=== PATIENT | male | born 1995 | race Caucasian/White ===

== ENCOUNTER 2021-09-23 10:29 | Outpatient (CLI) | payer OTHER, SELFPAY ==
--- NOTE | ~2021-09-23 | US_ITS ---
EXAMINATION: US scrotum doppler DATE: 09/23/2021 11:04 INDICATION: Right testicular pain. TECHNIQUE: Grayscale and Doppler ultrasound images of the testes were obtained. COMPARISON: None. FINDINGS: The right testis measures 5.1 x 3.0 x 2.6 cm. The left testis measures 4.9 x 3.1 x 2.3 cm. There is normal vascular flow to both testes. The right epididymis is normal with normal vascular justina w. The left epididymis is normal with normal vascular flow. There is no varicocele or hydrocele. IMPRESSION: 1. Normal testes. Reviewed, dictated and finalized at location A. 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 Normal testes.
== END 2021-09-23 10:30 | disposition home or self-care (01) ==
LOC: ANHIMG 10:33
PROVIDERS: Visit Provider Nurse Practitioner Family
DX: N50.811 Right testicular pain (principal)
CPT/HCPCS: 76870; 93976

== ENCOUNTER 2022-06-30 12:23 | Emergency (ER) | payer OTHER, SELFPAY ==
--- NOTE | ~2022-06-30 | US_ITS ---
EXAMINATION: US scrotum doppler DATE: 06/30/2022 13:46 INDICATION: Right testicular pain. TECHNIQUE: Grayscale and Doppler ultrasound images of the testes were obtained. COMPARISON: Ultrasound 09/23/2021, CT abdomen and pelvis FINDINGS: The right testis measures . The left testis measures . There is normal vascular flow to bot h testes. The right epididymis is normal with normal vascular flow. The left epididymis is normal wit h normal vascular flow. There is no varicocele or hydrocele. IMPRESSION: 1. Normal testes. Reviewed, dictated and finalized at location A. [employer] W[employer] CHIEF IMPRESSION: 1. Normal testes.
[2022-06-30 12:37] VITALS: BP 131/76; PULSE 77; RESP 14; TEMP 36.7; O2SAT 99
--- NOTE | 2022-06-30 13:18 | PC.NURSE ---
Patient in ultrasound
--- NOTE | 2022-06-30 13:19 | ED.MALEGU ---
HPI - Male Genitourinary General Chief complaint: Urogenital-Male Stated complaint: right testicle pain, 5 days Time Seen by Provider: 06/30/22 12:38 History of Present Illness HPI Narrative: Patient is a 27-year-old male who presents ER with right testicular pain. Ongoing for 5 days. No trauma. Feels like it slightly enlarged. No redness of the scrotum. Reports last unprotected sex was 1 to 2 weeks ago. No urethral discharge. He is concerned he may have testicular torsion. Cannot describe any alleviating factors. Related Data Allergies Allergy/AdvReac Type Severity Reaction Status Date / Time No Known Allergies Allergy Verified 06/30/22 12:24 Review of Systems Constitutional: Constitutional: Denies chills and Denies fever(s) Gastrointestinal: Gastrointestinal: Denies abdominal pain and Denies nausea Genitourinary: Genitourinary: Denies genital lesions, Denies dysuria, Denies penile discharge, Reports testicular pain and Denies urinary frequency PMF Past Medical History Medical History (Updated 06/30/22 @ 14:51 by Cornell Guillory MD) Anxiety Depression Social History Social History (Updated 06/02/19 @ 20:55 by Kiki Davalos, COST RECORDER) Smoking packs per day: 1 Smoking cigarettes per day: 20.0 Smoking status: Current every day smoker Alcohol intake: current Alcohol use details: social Substance use: current Substance use type: marijuana Gender identity (if verbalized by the patient): Male Exam Narrative: GENERAL: Well-appearing, well-nourished, and in no acute distress. HEAD: Normocephalic, atraumatic. : Normal-appearing external genitalia without lesions of the penile shaft or glans. No urethral discharge. Right testicle slightly enlarged compared to left with irregularity over the epididymis. EXTREMITIES: Normal range of motion. No edema. SKIN: Warm, dry, no rash. NEURO: Alert and oriented x3. PSYCH: Normal mood and affect. Course Course Emergency Course: Patient informed of results. Will treat for STI exposure. Discharge. Vital Signs Vital signs: Vital Signs Temperature 98.1 F 06/30/22 12:37 Pulse Rate 77 06/30/22 12:37 Respiratory Rate 14 06/30/22 12:37 Blood Pressure 131/76 06/30/22 12:37 Pulse Oximetry 99 06/30/22 12:37 Oxygen Delivery Room Air 06/30/22 12:37 Temperature 98.1 F 06/30/22 12:37 Pulse Rate 77 06/30/22 12:37 Respiratory Rate 14 06/30/22 12:37 Blood Pressure 131/76 06/30/22 12:37 Pulse Oximetry 99 06/30/22 12:37 Oxygen Delivery Room Air 06/30/22 12:37 MDM - Male Genitourinary Lab Data Labs: Lab Results 06/30/22 06/30/22 Range/Units 13:32 13:32 Urine Color Yellow (Yellow) Urine Appearance Clear (Clear) Urine pH 6.0 (5.0-9.0) Ur Specific [place] >= 1.030 (1.001-1.035) Urine Protein Negative (Negative) mg/dL Urine Glucose (UA) Negative (Negative) mg/dL Urine Ketones Trace (Negative) mg/dL Ur Blood (Man) Negative (Negative) Urine Nitrate Negative (Negative) Urine Bilirubin 1+ H (Negative) Urine Urobilinogen 1.0 (<2.0) mg/dL Leukocyte Esterase Rfl Negative (Negative) TIFFANI/UL Urine WBC 0-3 /hpf Urine Bacteria Trace /hpf Hyaline Casts 1-2 (None) /lpf Urine Mucus Rare /lpf C.trachomatis RNA (TMA) Pending N.gonorrhoeae RNA (TMA) Pending Imaging Data Radiologist's impression: ITS Impressions Scrotum Ultrasound 06/30/22 13:48 IMPRESSION: 1. Normal testes. Discharge Plan Discharge Clinical Impression: Pain in testicle, Exposure to STD Patient Disposition: Home, Self-Care Condition: Stable Instructions: Antibiotic Form, Safe Sex Practices (ED), Testicle Pain (ED) Additional Instructions: Return the ER if you have worsening pain in your testicle, you have burning urination, or you have additional concerns. Prescriptions: New doxycycline monohydrate 100 mg capsule
[2022-06-30] MEDS: IBUPROFEN 600 MG TABLET PO (13:30)
[2022-06-30 13:43] LABS: Appearance Urine Clear (Clear); Bilirubin Urine 1+ (Negative); Blood Urine Negative (Negative); Color Urine Yellow (Yellow); Glucose Urine UA Negative (Negative); Ketones Urine Trace mg/dL (Negative); Leukocyte Esterase Ur Negative LEU/UL (Negative); Nitrate Urine Negative (Negative); Protein Urine Negative (Negative); Specific Grav Ur >= 1.030 (1.001-1.035)
[2022-06-30 13:48] LABS: Add Urine Microscopic? YES; Bacteria Urine Trace /hpf; Mucus Urine Rare /lpf; WBC Urine 0-3 /hpf
[2022-06-30 14:00] VITALS: TEMP 36.7
[2022-06-30] MEDS: cefTRIAXone 1 GM VIAL 0.5 GM IM (15:40)
[2022-06-30] MEDS: LIDOCAINE HCL 1% LOCAL INJ 20 ML VIAL (15:41)
== END 2022-06-30 15:50 | disposition home or self-care (01) ==
PROVIDERS: Emergency Provider Emergency Medicine; PCP Nurse Practitioner Family
DX: N50.811 Right testicular pain (principal); Z20.2 Contact with and (suspected) exposure to infections with a predominantly sexual mode of transmission; F17.210 Nicotine dependence, cigarettes, uncomplicated
CPT/HCPCS: 76870; 81001; 87491; 87591; 93976; 96372; 99284; A9270; J0696